=== PATIENT | female | born 1970 | race Caucasian/White ===

== ENCOUNTER 2017-05-17 09:47 | Emergency (ER) | payer BC ==
[~2017-05-17] VITALS: Ht 157.5 cm; Wt 86.6 kg
[~2017-05-17 09:47] MED LIST: NO MEDS; SINGULAIR10 MG PO; ZYZOL PO
[2017-05-17 10:46] LABS: BASOPHILS # (AUTO) 0.1 (0.0-0.1); BASOPHILS % 0.6 % (0.0-1.0); EOSINOPHILS # (AUTO) 0.2 (0.0-0.4); EOSINOPHILS % 2.1 % (0.0-6.0); HEMATOCRIT 43.7 % (34.2-44.1); HEMOGLOBIN 14.8 g/dL (12.0-16.0); LYMPHOCYTES # (AUTO) 2.1 (1.0-3.2); LYMPHOCYTES % 25.8 % (18.0-39.1); MEAN CORPUSCULAR HEMOGLOBIN 32.8 pg (28-32); MEAN CORPUSCULAR HGB CONC 33.9 g/dL (31-35); MEAN CORPUSCULAR VOLUME 96.9 fL (81-99); MONOCYTES # (AUTO) 0.4 (0.2-0.8); MONOCYTES % 4.7 % (4.4-11.3); NEUTROPHILS # (AUTO) 5.4 (2.1-6.9); NEUTROPHILS % 66.6 % (38.7-80.0); PLATELET COUNT 302 x10e3/uL (140-360); RED BLOOD COUNT 4.51 x10e6/uL (3.6-5.1)
[2017-05-17 11:09] LABS: ALANINE AMINOTRANSFERASE 78 IU/L (0-55); ALBUMIN 3.8 g/dL (3.5-5.0); ALKALINE PHOSPHATASE 96 IU/L (40-150); BLOOD UREA NITROGEN 12 mg/dL (7-26); BUN/CREATININE RATIO 15 (6-25); CALCIUM 10.4 mg/dL (8.4-10.2); CARBON DIOXIDE 26 mmol/L (22-29); CHLORIDE 106 mmol/L (98-107); CREATININE, SERUM 0.81 mg/dL (0.57-1.11); EST GLOMERULAR FILTRATION RATE > 60 ML/MIN (60-); GLUCOSE 104 mg/dL (74-118); LIPASE 57 U/L (8-78); SODIUM 141 mmol/L (136-145)
[2017-05-17 12:24] LABS: BILIRUBIN,URINE NEGATIVE (NEGATIVE); KETONES,URINE NEGATIVE (NEGATIVE); LEUKOCYTE ESTERASE ,URINE NEGATIVE (NEGATIVE); NITRITE,URINE NEGATIVE (NEGATIVE); PROTEIN,URINE DIPSTICK NEGATIVE (NEGATIVE); URINE UROBILINOGEN 0.2 mg/dL (0.2 - 1)
[2017-05-17 12:38] LABS: CLARITY,URINE SL CLOUDY (CLEAR); COLOR,URINE YELLOW (YELLOW)
[2017-05-17 12:39] LABS: PREGNANCY TEST, URINE NEGATIVE (NEGATIVE)
[2017-05-17 12:50] LABS: EPITHELIAL CELLS,URINE RARE /LPF; RBC,URINE 0-5 /HPF (0-5); WBC,URINE (MAN) 0-5 /HPF (0-5)
--- NOTE | 2017-05-17 14:22 | Diagnostic Imaging Report ---
EXAM: CT Abdomen and Pelvis WITH contrast INDICATION: Right lower quadrant pain for 2 days. Concern for appendicitis. COMPARISON: None. TECHNIQUE: Abdomen and pelvis were scanned utilizing a multidetector helical scanner from the lung base to the pubic symphysis after administration of IV contrast. Coronal and sagittal reformations were obtained. Routine protocol was performed. Scan was performed when during portal venous phase. IV CONTRAST: 150 mL of Omnipaque 300 ORAL CONTRAST: Gastrografin and water mixture. RADIATION DOSE: Total DLP: 737.14 mGy*cm Estimated effective dose: (DLP x 0.015 x size factor) mSv COMPLICATIONS: None FINDINGS: LINES and TUBES: None. LOWER THORAX: Unremarkable HEPATOBILIARY: Is low attenuation of the hepatic parenchyma consistent with steatosis. No focal hepatic lesions. No biliary ductal dilation. GALLBLADDER: No radio-opaque stones or sludge. No wall thickening. SPLEEN: No splenomegaly. PANCREAS: No focal masses or ductal dilatation. ADRENALS: No adrenal nodules KIDNEYS/URETERS: Kidneys enhance symmetrically. No hydronephrosis. No cystic or solid mass lesions. No stones. GI TRACT: No abnormal distention, wall thickening, or evidence of bowel obstruction. Appendix is normal. There are a few tiny sigmoid diverticula without CT evidence of diverticulitis. PELVIC ORGANS/BLADDER: There is a 4.8 x 3.9 cm high attenuation oval lesion abutting the anterior aspect of the uterine fundus on image 71 series 2 which may represent a pedunculated leiomyoma versus less likely an adnexal mass S a normal-appearing right ovary is identified posterolaterally to the uterus on images 66 series 2. The urinary bladder is unremarkable. Small calcific tissues is scattered throughout the pelvis are suggestive of phleboliths. LYMPH NODES: No lymphadenopathy. VESSELS: Unremarkable. PERITONEUM / RETROPERITONEUM: There is an inflamed epiploic appendix in the right lower quadrant abutting the ascending colon on image 45 series 2, sedated with stranding of the surrounding fat. No free air or fluid. No fluid collections to suggest abscess. BONES: Degenerative disc disease with vacuum disc phenomenon at L5-S1. SOFT TISSUES: Unremarkable. IMPRESSION: 1. Right lower quadrant epiploic appendagitis. No evidence of acute appendicitis as per clinical query. 2. 4.8 cm oval high attenuation lesion abutting the uterine fundus may represent a pedunculated leiomyoma versus an adnexal mass. Recommend further evaluation with nonemergent ultrasound of pelvis. 3. Hepatic steatosis. Signed by: Dr. Roby Odell M.D. on 05/17/2017 2:18 PM
[2017-05-17 15:00] VITALS: BP 112/71
[2017-05-17] MEDS ORDERED: SODIUM CHLORIDE 0.9% 50ML 50 ML ONE (15:21)
[2017-05-17] MEDS ORDERED: IOPAMIDOL 370 MG/ML 200 ML INFUS..BTL INJ ONE (15:21)
== END 2017-05-17 15:13 | disposition home or self-care (01) ==
LOC: ER 09:47
DX: R10.31 Right lower quadrant pain (principal); K63.89 Other specified diseases of intestine; K76.0 Fatty (change of) liver, not elsewhere classified
CPT/HCPCS: 36415; 74177; 80053; 81001; 81025; 83690; 84702; 85025; 87086; 99284; Q9967

== ENCOUNTER 2019-01-31 13:18 | Emergency (ER) | payer BC, OTHER ==
[~2019-01-31] VITALS: Ht 157.5 cm; Wt 86.6 kg
--- OUTSIDE RECORDS SUMMARY | 2019-01-31 13:21 | XMS REPORT ---
Author Author [facility] Address Unknown Phone Unavailable Care Team Providers Care Translation Director Name Role Phone SHELDON MAIER Unavailable Unavailable Problems This patient has no known problems. Allergies, Adverse Reactions, Alerts This patient has no known allergies or adverse reactions. Medications This patient has no known medications. Results Test Description Test Time Test Comments Text Results Atomic Results Result Comments CT ABDOMEN/PELVIS W [place] [address] Patient Name: DANNIELLE REYES MR #: [id number] : 1970 Age/Sex: 46/F Req #: [id number] Adm Physician: Ordered by: SHELDON MAIER MD Report #: [id number] Location: ER Room/Bed: Procedure: [id number] CT/CT ABDOMEN/PELVIS W Exam Date: 05/17/17 Exam Time: 1250 REPORT STATUS: Signed EXAM: CT Abdomen and Pelvis WITH contrast INDICATION: Right lower quadrant pain for 2 days. Concern for appendicitis. COMPARISON: None. TECHNIQUE: Abdomen and pelvis were scanned utilizing a multidetector helical scanner from the lung base to the pubic symphysis after administration of IV contrast. Coronal and sagittal reformations were obtained. Routine protocol was performed. Scan was performed when during portal venous phase. IV CONTRAST: 150 mL of Omnipaque 300 ORAL CONTRAST: Gastrografin and water mixture. RADIATION DOSE: Total DLP: 737.14 mGy*cm Estimated effective dose: (DLP x 0.015 x size factor) mSv COMPLICATIONS: None FINDINGS: LINES and TUBES: None. LOWER THORAX: Unremarkable HEPATOBILIARY: Is low attenuation of the hepatic parenchyma consistent with steatosis. No focal hepatic lesions. No biliary ductal dilation. GALLBLADDER: No radio-opaque stones or sludge. No wall thickening. SPLEEN: No splenomegaly. PANCREAS: No focal masses or ductal dilatation. ADRENALS: No adrenal nodules KIDNEYS/URETERS: Kidneys enhance symmetrically. No hydronephrosis. No cystic or solid mass le sions. No stones. GI TRACT: No abnormal distention, wall thickening, or evidence of bowel obstruction. Appendix is normal. There are a few tiny sigmoid diverticula without CT evidence of diverticulitis. PELVIC ORGANS/BLADDER: There is a 4.8 x 3.9 cm high attenuation oval lesion abutting the anterior aspect of the uterine fundus on image 71 series 2 which may represent a pedunculated leiomyoma versus less likely an adnexal mass S a normal-appearing right ovary is identified posterolaterally to the uterus on images 66 series 2. The urinary bladder is unremarkable. Small calcific tissues is scattered throughout the pelvis are suggestive of phleboliths. LYMPH NODES: No lymphadenopathy. VESSELS: Unremarkable. PERITONEUM / RETROPERITONEUM: There is an inflamed epiploic appendix in the right lower quadrant abutting the ascending colon on image 45 series 2, sedated with stranding of the surrounding fat. No free air or fluid. No fluid collections to suggest abscess. BONES: Degenerative disc disease with vacuum disc phenomenon at L5-S1. SOFT TISSUES: Unremarkable. IMPRESSION: 1. Right lower quadrant epiploic appendagitis. No evidence of acute appendicitis as per clinical query. 2. 4.8 cm oval high attenuation lesion abutting the uterine fundus may represent a pedunculated leiomyoma versus an adnexal mass. Recommend further evaluation with nonemergent ultrasound of pelvis. 3. Hepatic steatosis. Signed by: Dr. Roby Odell M.D. on 05/17/2017 2:18 PM Dictated By: KISHA ODELL MD, MD [id number] Transcribed By: KIKI on 05/17/17 1418 COPY TO: SHELDON MAIER MD
[2019-01-31] MEDS ORDERED: KETOROLAC TROMETHAMINE 30 MG/ML VIAL IV STA (13:41)
[2019-01-31] MEDS ORDERED: DEXAMETHASONE SOD PHOS 10 MG/1 ML VIAL IV ONE (13:45)
[2019-01-31] MEDS ORDERED: DIPHENHYDRAMINE HCL INJ 50 MG/ML VIAL IV ONE (13:45)
[2019-01-31] MEDS ORDERED: METOCLOPRAMIDE HCL 10 MG/2ML VIAL IV ONE (13:45)
[2019-01-31 13:55] LABS: BASOPHILS % 0.4 % (0.0-1.0); EOSINOPHILS # (AUTO) 0.1 (0.0-0.4); EOSINOPHILS % 0.8 % (0.0-6.0); HEMOGLOBIN 13.6 g/dL (12.0-16.0); LYMPHOCYTES # (AUTO) 0.9 (1.0-3.2); LYMPHOCYTES % 10.8 % (18.0-39.1); MEAN CORPUSCULAR HEMOGLOBIN 32.5 pg (28-32); MEAN CORPUSCULAR VOLUME 95.5 fL (81-99); MONOCYTES # (AUTO) 0.1 (0.2-0.8); MONOCYTES % 1.3 % (4.4-11.3); NEUTROPHILS # (AUTO) 7.4 (2.1-6.9); NEUTROPHILS % 86.5 % (38.7-80.0); PLATELET COUNT 251 x10e3/uL (140-360); RED BLOOD COUNT 4.19 x10e6/uL (3.6-5.1); RED CELL DISTRIBUTION WIDTH 12.4 % (11.7-14.4)
[2019-01-31 14:06] LABS: ALANINE AMINOTRANSFERASE 27 IU/L (0-55); ALBUMIN 3.8 g/dL (3.5-5.0); ALBUMIN/GLOBULIN RATIO 1.2 (0.8-2.0); ALKALINE PHOSPHATASE 59 IU/L (40-150); ANION GAP 9.8 mmol/L (8-16); BILIRUBIN,URINE NEGATIVE (NEGATIVE); BLOOD UREA NITROGEN 19 mg/dL (7-26); BUN/CREATININE RATIO 28 (6-25); CALCIUM 9.3 mg/dL (8.4-10.2); CARBON DIOXIDE 26 mmol/L (22-29); CHLORIDE 105 mmol/L (98-107); CLARITY,URINE SL CLOUDY (CLEAR); COLOR,URINE YELLOW (YELLOW); CREATININE, SERUM 0.68 mg/dL (0.57-1.11); EST GLOMERULAR FILTRATION RATE > 60 ML/MIN (60-); GLUCOSE 134 mg/dL (74-118); KETONES,URINE 1+ (NEGATIVE); LEUKOCYTE ESTERASE ,URINE NEGATIVE (NEGATIVE); NITRITE,URINE NEGATIVE (NEGATIVE); POTASSIUM 3.8 mmol/L (3.5-5.1); PROTEIN,URINE DIPSTICK NEGATIVE (NEGATIVE); SODIUM 137 mmol/L (136-145); URINE UROBILINOGEN 0.2 mg/dL (0.2 - 1)
[2019-01-31] MEDS ORDERED: FAMOTIDINE 20 MG/2 ML VIAL IV STA (14:21)
[2019-01-31 14:29] LABS: BACTERIA,URINE RARE /HPF; EPITHELIAL CELLS,URINE FEW /LPF
[2019-01-31] MEDS ORDERED: SODIUM CHLORIDE 0.9% 1000ML 1,000 ML IV ONE (14:30)
== END 2019-01-31 15:41 | disposition home or self-care (01) ==
LOC: ER 13:18
DX: G43.909 Migraine, unspecified, not intractable, without status migrainosus (principal); K52.9 Noninfective gastroenteritis and colitis, unspecified
CPT/HCPCS: 36415; 80053; 81001; 81025; 85025; 99284; J1100; J1200; J1885; J2765; J7030